=== PATIENT | male | born 1980 | race Two or more races ===

== ENCOUNTER 2017-04-30 20:09 | Emergency (ER) | payer OTHER ==
[~2017-04-30] VITALS: Ht 177.8 cm; Wt 86.2 kg
--- NOTE | 2017-04-30 20:19 | NUR ---
CALLED FOR PT NO ANSWER.CHECKED OUTSIDE DID NOT SEE PT
--- NOTE | 2017-04-30 20:30 | NUR ---
CALLED FOR PT NO ANSWER
--- NOTE | 2017-04-30 22:51 | NUR ---
Patient eloped from facility. ER physician notified. All belongings with patient.
== END 2017-04-30 22:57 | disposition left against medical advice (07) ==
LOC: ER 20:12
DX: S82.892A Other fracture of left lower leg, initial encounter for closed fracture (principal); S29.9XXA Unspecified injury of thorax, initial encounter; F17.200 Nicotine dependence, unspecified, uncomplicated; Y08.89XA Assault by other specified means, initial encounter; Y93.89 Activity, other specified; Y92.89 Other specified places as the place of occurrence of the external cause; Y99.8 Other external cause status
CPT/HCPCS: A4663

== ENCOUNTER 2017-05-01 16:50 | Emergency (ER) | payer OTHER ==
[~2017-05-01] VITALS: Ht 177.8 cm; Wt 86.2 kg
--- NOTE | 2017-05-01 17:22 | NUR ---
DR ANTOINE AT THE BEDSIDE FOR EVAL AND EXAM.
[2017-05-01] MEDS ORDERED: NEOMY/BACITRA/POLYMYXIN B OINT UD PACKET TP ONE ×2 (17:30→17:39)
--- NOTE | 2017-05-01 17:41 | NUR ---
Patient discharged to home in stable conditon. Written and verbal after care instructions given. Patient verbalizes understanding of instructions.
[2017-05-01 17:42] VITALS: BP 143/93
== END 2017-05-01 17:43 | disposition home or self-care (01) ==
LOC: ER 16:52
DX: S61.213A Laceration without foreign body of left middle finger without damage to nail, initial encounter (principal); S93.402A Sprain of unspecified ligament of left ankle, initial encounter; Y08.89XA Assault by other specified means, initial encounter; Y93.89 Activity, other specified; Y99.8 Other external cause status; Y92.89 Other specified places as the place of occurrence of the external cause
CPT/HCPCS: A4663

== ENCOUNTER 2020-08-23 14:26 | Inpatient (IN) | payer OTHER ==
[~2020-08-23] VITALS: Ht 175.3 cm; Wt 86.2 kg
--- NOTE | 2020-08-23 14:30 | NUR ---
RECEIVED PT 40 YRS MALE CAME FROM HOME C/O pain and swallen on lt forarm and lt grown pt used for iv abused drug lt femorale large and bed area redness swallen and draning pus hx diabete accuchec done 551mg/dl unable to inserted iv line blood drow by lab tach blood culture x2 drow and septic work up cx ray done pt comected to ekg moniter showning SThr 123b/min temp 99.2
[2020-08-23] MEDS ORDERED: HYDROMORPHONE 1 MG/1 ML DISP.SYRIN IV ONE (14:45)
[2020-08-23] MEDS ORDERED: ONDANSETRON 4 MG/2 ML VIAL IV ONE (14:45)
[2020-08-23] MEDS ORDERED: IV NORMAL SALINE 1000 ML BAG IV ONE (14:45)
[2020-08-23] MEDS ORDERED: VANCOMYCIN IV 1,000 MG in IV DEXTROSE 5% 250 ML IV ONE (14:45)
[2020-08-23] MEDS ORDERED: PIPERACILLIN SODIUM/TAZOBACTAM 3.375 G in IV DEXTROSE 5% 50 ML IV ONE (14:45)
[2020-08-23] MEDS ORDERED: ACETAMINOPHEN ES 500 MG TABLET PO ONE (15:00)
[2020-08-23 15:20] LABS: BASOPHILS % (AUTO) 0.3 % (0.0-2.0); EOSINOPHILS # (AUTO) 0.1 K/uL (0.0-0.7); EOSINOPHILS % (AUTO) 1.2 % (0.0-7.0); HEMATOCRIT 37.3 % (36.7-47.1); HEMOGLOBIN 12.7 g/dL (12.5-16.3); LYMPHOCYTES # (AUTO) 1.1 K/uL (20.0-40.0); LYMPHOCYTES % (AUTO) 14.2 % (20.5-51.5); MEAN CORPUSCULAR HEMOGLOBIN 27.2 uug (23.8-33.4); MEAN CORPUSCULAR HGB CONC 34 g/dL (32.5-36.3); MEAN CORPUSCULAR VOLUME 79.6 fL (73.0-96.2); MONOCYTES # (AUTO) 0.6 K/uL (2.0-10.0); MONOCYTES % (AUTO) 8.1 % (0.0-11.0); NEUTROPHILS # (AUTO) 5.8 K/uL (1.8-8.9); NEUTROPHILS % (AUTO) 76.2 % (38.5-71.5); PLATELET COUNT (AUTO) 329 K/uL (152-348); RED BLOOD CELL COUNT(AUTO) 4.68 MIL/uL (4.06-5.63); WHITE BLOOD COUNT (AUTO) 7.6 K/uL (3.6-10.2)
--- NOTE | 2020-08-23 15:20 | NUR ---
unble to inserted iv line DR. GRAY AT BED SIDE inserted ango cath # 20 on [address] wrist sterted ivf ns 30ml/kg infused and patent
[2020-08-23 15:38] LABS: BILIRUBIN,DIRECT 0.1 mg/dL (0.0-0.2); BILIRUBIN,TOTAL 0.4 mg/dL (0.2-1.0); CREATININE 1.3 mg/dL (0.6-1.3); POTASSIUM 4.5 mmol/L (3.5-5.1); TOTAL PROTEIN, SERUM 7.8 g/dL (6.4-8.2)
[2020-08-23] MEDS ORDERED: ACETAMINOPHEN 325 MG TABLET ONE (15:44)
[2020-08-23] MEDS ORDERED: HYDROMORPHONE 1 MG/1 ML DISP.SYRIN ONE (15:45)
[2020-08-23] MEDS ORDERED: ONDANSETRON 4 MG/2 ML VIAL ONE (15:46)
[2020-08-23] MEDS ORDERED: PIPERACILLIN/TAZOBACTAM/D5W 50 ML IV ONE (15:48)
[2020-08-23] MEDS ORDERED: VANCOMYCIN IV 200 ML ONE (15:48)
[2020-08-23 15:54] LABS: *BILIRUBIN,URIN NEGATIVE (NEGATIVE); *BLOOD, URINE NEGATIVE (NEGATIVE); *CLARITY,URINE CLEAR (CLEAR); *COLOR,URINE LIGHT YELLOW (YELLOW); *KETONES,URINE NEGATIVE (NEGATIVE); *UROBILINOGEN,URINE 0.2 E.U./dl (NORMAL); LEUKOCYTE ESTERASE ,URINE NEGATIVE (NEGATIVE); NITRITE, URINE NEGATIVE (NEGATIVE); PH,URINE 5.5 (5.0-8.0)
[2020-08-23 15:58] LABS: UGLUCOSE 3+ (NEGATIVE)
[2020-08-23] MEDS ORDERED: INSULIN REGULAR, HUMAN 300 UNIT/3 ML VIAL SQ ONE (16:00)
--- NOTE | 2020-08-23 16:00 | NUR ---
to ct scan of abdomin via garny started zosyn 3.375 gm infused and patent
--- NOTE | 2020-08-23 16:30 | NUR ---
IV slaip out renserted ango cath # [address] forarm long cath under us patent and intact ns 1 l infused and patent and sarted 2nd liter
[2020-08-23] MEDS ORDERED: INSULIN REGULAR, HUMAN 300 UNIT/3 ML VIAL ONE (16:32)
--- NOTE | 2020-08-23 17:55 | NUR ---
BLOOD DROW BY LAB FOR REAPEAT LACTETE IVF INUSED AND PATENT 3RD LITER AND VANCOMYCIN 1GM INFUSING TO ROOM 310 VIA GGARNY STABLE VS
[2020-08-23 18:17] VITALS: BP 109/66
[2020-08-23] MEDS ORDERED: SULF1TAB48 PO (18:37)
--- NOTE | 2020-08-23 19:08 | NUR ---
Patient was admitted to the unit at 1809 , report was given by nurse Gladis. When patient arrived on the unit and vitals were taken and belongings list was being done. Patient got upset and did not want us going through his belongings. The [employer] Mallory found needles and a unknown substance in a pouch and also cigarettes and multiple lighters. The patient decided he did not want to be here any longer and asked to be leave. I explained that he is leaving AMA and he said fine and left. Made MD aware and will fill out a incident report.
== END 2020-08-23 18:32 | disposition left against medical advice (07) | DRG 720 ==
LOC: ER 14:32 → MEDSURG3 17:53
PROVIDERS: ADMIT Internal Medicine; ATTEND Internal Medicine
DX: A41.9 Sepsis, unspecified organism (principal); L03.116 Cellulitis of left lower limb; E11.65 Type 2 diabetes mellitus with hyperglycemia; R65.21 Severe sepsis with septic shock; L02.214 Cutaneous abscess of groin; Z79.4 Long term (current) use of insulin; L02.416 Cutaneous abscess of left lower limb; F11.10 Opioid abuse, uncomplicated
CPT/HCPCS: 36415; 71045; 73700; 83605; 85025; 85730; 87040; 87086; 93005; A4663; G0378; J1170; J1815; J2405; J2543; J3370; J7030